=== PATIENT | female | born 1990 | race Caucasian/White ===

== ENCOUNTER 2017-06-15 08:38 | Day surgery (SDC) | payer OTHER ==
[~2017-06-15] VITALS: Ht 162.6 cm; Wt 66.7 kg
[~2017-06-15 08:38] MED LIST: ALBU90OI INH; Bactrim Ds Tab1 EACH PO; CEPH500 PO; CYCL10 PO; Cleocin HCl300 MG PO; FAMO20 PO; HYDACE5325 PO; HYDHCL25 PO; HYDR1TAB94 PO; IBUP600 PO; IBUP800 PO; NAPR500 PO; NAPR500EC PO; NEOPOLHYDS RIGHTEAR; ONDA4 PO; OXYACE5T PO; PENVK500 PO; PHENA200 PO; PRED20 PO; PROC10 PO; Percocet 5-3251 EACH PO; Pyridium200 MG PO; SULTRIDS PO; SULTRISS PO; TRAZ50 PO; Ultram50 MG PO; Zantac150 MG PO
--- NOTE | 2017-06-15 09:11 | NUR ---
Ambulatory in Day Surgery Damon Paws warming gown applied. History, Chart, Medications and Allergies reviewed before start of procedure. Lungs clear T/O to Auscultation. Patient confirms NPO status and agrees with scheduled surgery. Patient States Post-Procedure ride home has been arranged.
--- NOTE | 2017-06-15 12:18 | NUR ---
PATIENT BACK TO BED WITH C/O "BLOOD FROM PEE HOLE" AND "FUCKING HURTS SO BAD", STATES CLOTS THAT SHE COULD FEEL COMING OUT OF HER. WILL CALL DR JUNIOR.
--- NOTE | 2017-06-15 12:40 | NUR ---
RECEIVED REPORT FROM ROYCE SX RN (ANTELMO). PT GOT UP TO THE BATHROOM AND HAS SOME BLOOD CLOTS PT STATED "I FEEL LIKE ITS FROM MY BLADDER". PT HAS SOME CRAMPING. ANTELMO RECEIVED TELE ORDERS FROM DR JUNIOR. ORDERED 30MG IV TORADOL X1. PYRIDIUM TO BE GIVEN X1 NOW. RN CALLED IN RX FOR PYRIDIUM TO [facility]. PT SITTING UP IN BED, TEXTING ON PHONE. WILL ASSUME CARE OF PT.
--- NOTE | 2017-06-15 12:52 | NUR ---
D/C INSTUCTIONS WERE ALREADY GIVEN TO PT BY ANTELMO. Discharge instructions reviewed with patient. Patient verbalizes understanding. Copy given to patient to take home. Patient States Post-Procedure ride home has been arranged. Discharged via wheelchair to private car for ride home.
[2018-06-02] MEDS ORDERED: Ranitidine HCl150 M1 PO (04:23)
== END 2017-06-15 22:46 | disposition home or self-care (01) ==
LOC: ORSCMMR 08:38
PROVIDERS: Obstetrics & Gynecology
PROC: 0U5F4ZZ Destruction of Cul-de-sac, Percutaneous Endoscopic Approach (ICD-10-PCS; principal; 2017-06-15 10:00)
DX: N80.3 Endometriosis of pelvic peritoneum (principal); R10.2 Pelvic and perineal pain; J45.909 Unspecified asthma, uncomplicated; F17.210 Nicotine dependence, cigarettes, uncomplicated
CPT/HCPCS: J0171; J1100; J1885; J2250; J2405; J2710; J3010; J7120

== ENCOUNTER → 2017-11-17 | Outpatient (CLI) | payer OTHER | END | disposition home or self-care (01) | LOC: LAB 10:24 → LAB SHORT 10:24 | PROVIDERS: Obstetrics & Gynecology | DX: Z36.89 Encounter for other specified antenatal screening (principal) | CPT/HCPCS: G0123 ==

== ENCOUNTER → 2018-02-16 | Outpatient (CLI) | payer OTHER ==
[2018-02-18 22:10] LABS: CHLAMYDIA TRACHOMATIS, NAA Negative (Negative); NEISSERIA GONORRHOEAE, NAA Negative (Negative)
== END | disposition home or self-care (01) ==
LOC: LAB SHORT 15:44 → LAB 15:44
PROVIDERS: Obstetrics & Gynecology
DX: Z11.3 Encounter for screening for infections with a predominantly sexual mode of transmission (principal)
CPT/HCPCS: 87491; 87591

== ENCOUNTER 2018-04-07 13:52 | Emergency (ER) | payer OTHER ==
[~2018-04-07] VITALS: Ht 162.6 cm; Wt 83.5 kg
[2018-04-07] MEDS ORDERED: Verotin-Gr Cap1 EACH PO (14:04)
[2018-04-07] MEDS ORDERED: [UNRECOGNIZED DRUG - REMARK] (14:04)
[2018-04-07] MEDS ORDERED: Zithromax250 MG PO (14:13)
== END 2018-04-07 14:20 | disposition home or self-care (01) ==
LOC: ER 13:52
DX: O99.513 Diseases of the respiratory system complicating pregnancy, third trimester (principal); J18.9 Pneumonia, unspecified organism; O99.333 Smoking (tobacco) complicating pregnancy, third trimester; F17.200 Nicotine dependence, unspecified, uncomplicated; Z79.899 Other long term (current) drug therapy; Z79.51 Long term (current) use of inhaled steroids; Z3A.31 31 weeks gestation of pregnancy
CPT/HCPCS: 99284

== ENCOUNTER → 2019-05-24 | Outpatient (CLI) | payer OTHER ==
[~2019-05-24] MED LIST changes: +Ranitidine HCl150 M1 PO; +Verotin-Gr Cap1 EACH PO; +Zithromax250 MG PO; +[UNRECOGNIZED DRUG - REMARK]
[2019-05-25 07:50] LABS: Candida species (DNA Probe) Negative (NEGATIVE); G. vaginalis (DNA Probe) Negative (NEGATIVE); T. vaginalis (DNA Probe) Negative (NEGATIVE)
== END | disposition home or self-care (01) ==
LOC: LAB SHORT 18:40 → LAB 18:40
PROVIDERS: Obstetrics & Gynecology
DX: O99.89 Other specified diseases and conditions complicating pregnancy, childbirth and the puerperium (principal); N89.8 Other specified noninflammatory disorders of vagina
CPT/HCPCS: 87081; 87480; 87510; 87653; 87660

== ENCOUNTER 2019-06-19 02:42 | Inpatient (IN) | payer OTHER ==
[~2019-06-19] VITALS: Ht 162.6 cm; Wt 89.1 kg
[2019-06-19 06:26] LABS: BASOPHILS ABSOLUTE AUTO 0.03 K/mm3 (0.00-0.23); BASOPHILS PERCENT AUTO 0 % (0-2); EOSINOPHILS ABSOLUTE AUTO 0.29 K/mm3 (0.00-0.68); EOSINOPHILS PERCENT AUTO 2 % (0-6); Hematocrit 32.5 % (33.0-51.0); Hemoglobin 10.8 g/dL (11.5-16.0); IMMATURE GRAN ABSOLUTE AUTO 0.09 K/mm3 (0.00-0.10); IMMATURE GRAN PERCENT AUTO 1 % (0-1); LYMPHOCYTES ABSOLUTE AUTO 3.04 K/mm3 (0.84-5.20); LYMPHOCYTES PERCENT AUTO 19 % (21-46); MONOCYTES ABSOLUTE AUTO 1.14 K/mm3 (0.16-1.47); MONOCYTES PERCENT AUTO 7 % (4-13); Mean Corpuscular HGB 30.4 pg (26.0-34.0); Mean Corpuscular HGB Conc 33.2 g/dL (31.5-36.5); Mean Corpuscular Volume 92 fL (80-100); Mean Platelet Volume 11.2 fL (9.1-12.4); NEUTROPHILS ABSOLUTE AUTO 11.55 K/mm3 (1.96-9.15); NEUTROPHILS PERCENT AUTO 72 % (41-73); Platelet Count 241 K/mm3 (150-400); RDW Standard Deviation 42.7 fL (35.1-46.3); Red Blood Cell Count 3.55 M/mm3 (3.80-5.20); White Blood Cell Count 16.14 K/mm3 (4.00-11.30)
[2019-06-19] MEDS ORDERED: Zantac150 MG PO (06:36)
--- NOTE | 2019-06-20 01:31 | NUR ---
PT , REPORTS SHE IS FEELING CRAMPY AND ASKED WHEN SHE CAN HAVE MORE TORADOL. PT NOTIFIED TORADOL NOT DUE UNTIL 0300, K-PAD OFFERED PT DECLINED STATING SHE THINKS HER CRAMPING WILL SETTLE DOWN WHEN BABY IS DONE FEEDING.
[2019-06-20 07:44] LABS: Hematocrit 28.9 % (33.0-51.0); Hemoglobin 9.5 g/dL (11.5-16.0); Mean Corpuscular HGB 30.2 pg (26.0-34.0); Mean Corpuscular HGB Conc 32.9 g/dL (31.5-36.5); Mean Corpuscular Volume 92 fL (80-100); Mean Platelet Volume 10.6 fL (9.1-12.4); Platelet Count 242 K/mm3 (150-400); RDW Standard Deviation 43.2 fL (35.1-46.3); Red Blood Cell Count 3.15 M/mm3 (3.80-5.20); White Blood Cell Count 16.25 K/mm3 (4.00-11.30)
--- NOTE | 2019-06-20 08:06 | NUR ---
HEATING PAD GIVEN FOR CRAMPING
--- NOTE | 2019-06-20 09:30 | NUR ---
patient wants to sleep and no be disturb
--- NOTE | 2019-06-20 13:46 | NUR ---
STATES INCREASE CRAMPING, BLEEDING WNL NO CLOTS UNABLE TO GIVE MOTRIN YET, TYLENOL OFFERED PATIENT REFUSED, HEATING PAD APPLIED
[2019-06-20] MEDS ORDERED: IBUP800 (14:37)
--- NOTE | 2019-06-20 17:36 | NUR ---
CONSULT. BABY IS LATCHING QUICKLY FOR MOM WHEN SHE IS AWAKE, BUT IT IS PAINFUL. SHE FELT LIKE HER FIRST BABY ALWAYS CHEWED ON HER NIPPLE, AND THAT IS HOW THIS ONE IS FEELING. NIPPLES ARE LONGER AND FULL WITH SMALL AREOLA, DUCTS CLOSE TO BASE OF NIPPLES. INSTRUCT/DEMO POSITIONING TO HELP ACHIEVE A DEEPER ASYMETRIC LATCH AND THEN FURTHER WIDEN THE LATCH UNTIL COMFORTABLE. SHE CAN FEEL THE DIFFERENCE AND BABY DOES ALLOW THE LATCH TO BE WIDENED. INSTRUCT IN CHANGES TO EXPECT DURING THE FIRST WEEK WITH BABY AND WITH FEEDINGS AND REFERRED TO BF BOOKLET AND BF BROCHURE FOR PHOTOS AND INFORMATION. QUESTIONS ANSWERED.
== END 2019-06-20 19:53 | disposition home or self-care (01) | DRG 806 ==
LOC: OBS 02:42 → BC 02:43 → OBS 06:07 → BC 06:10
PROVIDERS: ADMIT Obstetrics & Gynecology
PROC: 10E0XZZ Delivery of Products of Conception, External Approach (ICD-10-PCS; principal; 2019-06-19)
PROC: 0UQG7ZZ Repair Vagina, Via Natural or Artificial Opening (ICD-10-PCS; 2019-06-19)
PROC: 10907ZC Drainage of Amniotic Fluid, Therapeutic from Products of Conception, Via Natural or Artificial Opening (ICD-10-PCS; 2019-06-19)
PROC: 3E0R3BZ Introduction of Anesthetic Agent into Spinal Canal, Percutaneous Approach (ICD-10-PCS; 2019-06-19)
DX: O69.81X0 Labor and delivery complicated by cord around neck, without compression, not applicable or unspecified (principal); O71.4 Obstetric high vaginal laceration alone; Z37.0 Single live birth; Z3A.38 38 weeks gestation of pregnancy; O99.214 Obesity complicating childbirth; E66.9 Obesity, unspecified; O99.334 Smoking (tobacco) complicating childbirth; F17.200 Nicotine dependence, unspecified, uncomplicated; O99.344 Other mental disorders complicating childbirth; F43.10 Post-traumatic stress disorder, unspecified; F32.9 Major depressive disorder, single episode, unspecified
CPT/HCPCS: 36415; 51702; 59025; 85025; 85027; 86850; 86900; 86901; 87081; A9270; J1885; J2001; J2405; J2590; J3010; J7120

== ENCOUNTER → 2021-04-19 | Outpatient (CLI) | payer OTHER ==
[~2021-04-19] MED LIST changes: +IBUP800
[2021-04-19 10:55] LABS: BASOPHILS ABSOLUTE AUTO 0.03 K/mm3 (0.00-0.23); BASOPHILS PERCENT AUTO 0 % (0-2); EOSINOPHILS ABSOLUTE AUTO 0.03 K/mm3 (0.00-0.68); EOSINOPHILS PERCENT AUTO 0 % (0-6); Hematocrit 34.4 % (33.0-51.0); Hemoglobin 12.1 g/dL (11.5-16.0); IMMATURE GRAN ABSOLUTE AUTO 0.04 K/mm3 (0.00-0.10); IMMATURE GRAN PERCENT AUTO 0 % (0-1); LYMPHOCYTES ABSOLUTE AUTO 0.88 K/mm3 (0.84-5.20); LYMPHOCYTES PERCENT AUTO 7 % (21-46); MONOCYTES ABSOLUTE AUTO 0.56 K/mm3 (0.16-1.47); MONOCYTES PERCENT AUTO 5 % (4-13); Mean Corpuscular HGB Conc 35.2 g/dL (31.5-36.5); Mean Corpuscular Volume 94 fL (80-100); Mean Platelet Volume 9.8 fL (9.1-12.4); NEUTROPHILS ABSOLUTE AUTO 10.55 K/mm3 (1.96-9.15); NEUTROPHILS PERCENT AUTO 87 % (41-73); Platelet Count 209 K/mm3 (150-400); RDW Coefficient Variation 12.1 % (11.7-14.2); Red Blood Cell Count 3.67 M/mm3 (3.80-5.20); White Blood Cell Count 12.09 K/mm3 (4.00-11.30)
[2021-04-19 11:00] LABS: Anion Gap 10 mmol/L (6-16); Blood Urea Nitrogen 5 mg/dL (8-24); CO2, Blood 23 mmol/L (21-32); Calcium, Blood 8.5 mg/dL (8.5-10.1); Chloride, Blood 105 mmol/L (98-108); Creatinine, Blood 0.84 mg/dL (0.40-1.00); Glomerular Filtration Rate >60 (60-); Glucose, Blood 96 mg/dL (70-99); Sodium, Blood 138 mmol/L (136-145)
== END | disposition home or self-care (01) ==
LOC: LAB 10:50 → LAB SHORT 10:50
PROVIDERS: Physician Assistant Surgical
DX: R07.81 Pleurodynia (principal)
CPT/HCPCS: 80048; 85025; 85379

== ENCOUNTER → 2021-04-20 | Outpatient (CLI) | payer OTHER | END | disposition home or self-care (01) | LOC: LAB 13:05 → LAB SHORT 13:05 | DX: J18.9 Pneumonia, unspecified organism (principal); Z20.822 Contact with and (suspected) exposure to COVID-19 | CPT/HCPCS: U0003 ==

== ENCOUNTER 2021-06-21 06:09 | Day surgery (SDC) | payer OTHER ==
[~2021-06-21] VITALS: Ht 163 cm; Wt 76.9 kg
[~2021-06-21 06:09] MED LIST changes: -IBUP800; +RISP.5 PO; +Zantac PO
[2021-06-21] MEDS ORDERED: FLUC150A PO (06:38)
[2021-06-21] MEDS ORDERED: Percocet 5-3251 EACH PO (06:39)
--- NOTE | 2021-06-21 07:06 | NUR ---
Ambulatory in Day Surgery History, Chart, Medications and Allergies reviewed before start of procedure.Patient confirms NPO status and agrees with scheduled surgery. Patient reports completing Chlorhexadine shower X2 prior to admission to hospital.Lungs clear T/O to Auscultation.
--- NOTE | 2021-06-21 09:47 | NUR ---
Patient up to Ambulate independently. Gait steady. Damon Paws warming gown applied. Dressing to procedure site clean, dry, intact with no visible drainage, swelling, erythema or bruising noted. Discharge instructions reviewed with patient. Patient verbalizes understanding. Copy given to patient to take home.Lungs clear T/O to Auscultation. Patient States Post-Procedure ride home has been arranged. Discharged via wheelchair to private car for ride home.
== END 2021-06-21 10:12 | disposition home or self-care (01) ==
LOC: ORSCMMR 06:09
PROVIDERS: Obstetrics & Gynecology
PROC: 0UT74ZZ Resection of Bilateral Fallopian Tubes, Percutaneous Endoscopic Approach (ICD-10-PCS; principal; 2021-06-21 07:30)
DX: Z30.2 Encounter for sterilization (principal); F17.210 Nicotine dependence, cigarettes, uncomplicated; F33.9 Major depressive disorder, recurrent, unspecified; J45.909 Unspecified asthma, uncomplicated; Z79.899 Other long term (current) drug therapy
CPT/HCPCS: 88302; J1100; J1885; J2250; J2405; J2704; J2765; J3010; J7120

== ENCOUNTER 2022-06-10 16:12 | Emergency (ER) | payer OTHER ==
[~2022-06-10] VITALS: Ht 162.6 cm; Wt 77.1 kg
[~2022-06-10 16:12] MED LIST changes: +FLUC150A PO
[2022-06-10] MEDS ORDERED: CYCL10 PO (19:14)
== END 2022-06-10 19:32 | disposition home or self-care (01) ==
LOC: ER 16:12
DX: S39.011A Strain of muscle, fascia and tendon of abdomen, initial encounter (principal); X50.0XXA Overexertion from strenuous movement or load, initial encounter; F17.210 Nicotine dependence, cigarettes, uncomplicated
CPT/HCPCS: 76857; A9270

== ENCOUNTER → 2024-10-12 | Outpatient (CLI) | payer OTHER ==
[2024-10-12 13:49] LABS: BASOPHILS ABSOLUTE AUTO 0.01 K/mm3 (0.00-0.23); BASOPHILS PERCENT AUTO 0 % (0-2); EOSINOPHILS ABSOLUTE AUTO 0.19 K/mm3 (0.00-0.68); EOSINOPHILS PERCENT AUTO 2 % (0-6); Hematocrit 40.6 % (33.0-51.0); Hemoglobin 14.1 g/dL (11.5-16.0); IMMATURE GRAN ABSOLUTE AUTO 0.02 K/mm3 (0.00-0.10); IMMATURE GRAN PERCENT AUTO 0 % (0-1); LYMPHOCYTES ABSOLUTE AUTO 1.78 K/mm3 (0.84-5.20); LYMPHOCYTES PERCENT AUTO 23 % (21-46); MONOCYTES PERCENT AUTO 6 % (4-13); Mean Corpuscular HGB 32.8 pg (26.0-34.0); Mean Corpuscular HGB Conc 34.7 g/dL (31.5-36.5); Mean Corpuscular Volume 94 fL (80-100); Mean Platelet Volume 9.8 fL (9.1-12.4); NEUTROPHILS ABSOLUTE AUTO 5.31 K/mm3 (1.96-9.15); NEUTROPHILS PERCENT AUTO 68 % (41-73); Platelet Count 258 K/mm3 (150-400); RDW Coefficient Variation 11.9 % (11.7-14.2); RDW Standard Deviation 41.6 fL (35.1-46.3); White Blood Cell Count 7.81 K/mm3 (4.00-11.30)
[2024-10-12 14:09] LABS: Albumin, Blood 4.2 g/dL (3.4-5.0); Albumin/Globulin Ratio 1.4 (0.8-1.8); Bilirubin, Total 0.6 mg/dL (0.1-1.0); Bun/Creatinine Ratio 7.1 (12.0-20.0); Calcium, Blood 9.1 mg/dL (8.5-10.1); Creatinine, Blood 0.98 mg/dL (0.40-1.00); Globulin, Blood 3.1 g/dL (2.2-4.0); Potassium, Blood 3.9 mmol/L (3.5-5.5); Thyroid Stimulating Hormone 1.067 uIU/mL (0.360-4.800); Total Protein, Blood 7.3 g/dL (6.4-8.2)
== END ==
LOC: LAB SHORT 13:44 → LAB 13:44
PROVIDERS: Chiropractor
DX: R00.2 Palpitations (principal); R53.83 Other fatigue; R82.90 Unspecified abnormal findings in urine
CPT/HCPCS: 80053; 84443; 84484; 85025; 85379; 87086

== ENCOUNTER → 2025-04-24 | Outpatient (CLI) | payer OTHER | LOC: LAB SHORT 14:54 → LAB 14:54 | DX: R10.A2 Flank pain, left side (principal) | CPT/HCPCS: 87086 ==